=== PATIENT | male | born 1960 ===

== ENCOUNTER 2019-12-22 11:57 | Emergency (ER) | payer BC, OTHER ==
[2019-12-22] MEDS ORDERED: Sodium Chloride 0.9% 10 ML Syringe FLUSH PRN (12:00)
[2019-12-22] MEDS ORDERED: Sodium Chloride 0.9% 2.5 ML Syringe FLUSH PRN (12:00)
[2019-12-22] MEDS ORDERED: Aspirin 81 MG Tab.Chew PO ONE (12:01)
[2019-12-22] MEDS ORDERED: Enoxaparin 150 MG/1 ML Syringe SUBCUT ONE (12:19)
[2019-12-22] MEDS ORDERED: Nitroglycerin 2% Oint 1 GM UD Packet TOP ONE (12:19)
[2019-12-22] MEDS ORDERED: Clopidogrel 75 MG Tab PO ONE (12:24)
[2019-12-22 12:36] LABS: BLOOD UREA NITROGEN,BUN 14 mg/dL (7.0-18.0); CARBON DIOXIDE,CO2 24.1 mmol/L (21.0-32.0); CHLORIDE,CL 106 mmol/L (98-107); GLUCOSE RANDOM 110 mg/dL (74-106); POTASSIUM,K 4.2 mmol/L (3.5-5.1); SODIUM,NA 141 mmol/L (136-148)
--- NOTE | 2019-12-22 12:43 | CR ---
Chest: AP view of the chest was obtained. Comparison: Prior chest x-ray of 02/02/10. Heart size and mediastinum are normal. Lungs are clear. Bony structures are grossly intact. Impression: 1. Nothing acute is appreciated on AP chest x-ray. Diagnostic code #1 This report was dictated in [place] Standard Time
--- NOTE | 2019-12-22 12:53 | EDM.PDOC ---
ED HPI GENERAL MEDICAL PROBLEM - General Chief Complaint: Chest Pain Stated Complaint: CHEST PAIN Time Seen by Provider: 12/22/19 12:00 Source of Information: Reports: Patient History Limitations: Reports: No Limitations - History of Present Illness INITIAL COMMENTS - FREE TEXT/NARRATIVE: Patient is a 59-year-old male who is complaining of having chest discomfort which started approximately an hour prior to arrival initial episode lasting 5 minutes and reoccurred approximately 30 minutes prior to arrival worse continuing currently. Patient rates the pain is 5-6 out of 10 intensity without radiation. He feels a little short of breath a little nauseous though denies being diaphoretic. There does not appear to be exertional component with this. He denies ever having previously similar symptoms. He has no history of high blood pressure high cholesterol diabetes or family history of coronary artery disease. Patient is not a cigarette smoker denies using any street drugs. Denies any swelling to his calves or ankles and denies any bloody or tarry stools. Initially presented with a sensation of palpitations. Onset: Today Duration: Hour(s): (1), Constant Location: Reports: Chest Quality: Reports: Ache, Dull. Denies: Pressure Severity: Moderate Improves with: Reports: None Worsens with: Reports: None Associated Symptoms: Reports: Shortness of Breath. Denies: Diaphoresis Left Chest Pain Score (Numeric/FACES): 5 - Related Data Allergies Allergy/AdvReac Type Severity Reaction Status Date / Time No Known Allergies Allergy Verified 12/22/19 12:04 Home Meds: Home Meds . [No Known Home Meds] 12/22/19 [History] Past Medical History - Past Health History Medical/Surgical History: Denies Medical/Surgical History Social & Family History - Tobacco Use Smoking Status *Q: Never Smoker Second Hand Smoke Exposure: No - Caffeine Use Caffeine Use: Reports: Soda - Recreational Drug Use Recreational Drug Use: No ED ROS GENERAL - Review of Systems Review Of Systems: Comprehensive ROS is negative, except as noted in HPI. ED EXAM, GENERAL - Physical Exam Exam: Not Obtained Free Text/Narrative:: Exam: See Below Exam Limited By: No Limitations Head: Atraumatic Neck: Normal Inspection. No: Carotid Bruit, Lymphadenopathy (R) Respiratory/Chest: No Respiratory Distress, Lungs Clear, Normal Breath Sounds, No Accessory Muscle Use. No: Chest Non-Tender Cardiovascular: Normal Peripheral Pulses, Regular Rate, Rhythm, No Edema, No JVD GI/Abdominal: Normal Bowel Sounds, soft nontender nondistended. Back Exam: Normal Inspection. No: CVA Tenderness (R) Extremities: Normal Inspection. No: No Pedal Edema Neurological: Alert, Oriented, Normal Cognition Psychiatric: Normal Affect Skin Exam: Warm Lymphatic: No Adenopathy EKG INTERPRETATION Rhythm: NSR P-Wave: Present QRS: Normal ST-T: Depressed (ST depression with T wave inversion in lead V1 and V2 and also lateral leads. T wave inversion in lead V3.) Comparison: NA - No Prior EKG Course - Vital Signs Text/Narrative:: Patient's EKG was found to Dr. 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 Dr. Ceballos wanted patient started on Lovenox and Dr. Menon was recommending 600 mg dose of Plavix. I am giving patient half inch of Nitropaste for his ongoing chest pain. His pain is decreased to 2 out of 10 intensity. He is feeling much better. I have talked to Dr. Mendez at [facility] and patient is going by [facility] with fixed wing there. Last Recorded V/S: Last Vital Signs Temp 35.6 C L 12/22/19 12:05 Pulse 67 12/22/19 12:05 Resp 17 12/22/19 12:05 BP 114/71 12/22/19 12:05 Pulse Ox 97 12/22/19 12:05 - Orders/Labs/Meds Orders: Active Orders 24 hr Category Date Time Status EKG Documentation Completion [RC] STAT Care 12/22/19 12:00 Active Sodium Chloride 0.9% [Saline Flush] Med 12/22/19 12:00 Active 10 ml FLUSH ASDIRECTED PRN Sodium Chloride 0.9% [Saline Flush] Med 12/22/19 12:00 Active 2.5 ml FLUSH ASDIRECTED PRN Saline Lock Insert [OM.PC] Stat Oth 12/22/19 12:00 Ordered Medication Orders Sodium Chloride (Saline Flush) 10 ml FLUSH ASDIRECTED PRN PRN Reason: Keep Vein Open Last Admin: 12/22/19 12:08 Dose: 10 ml Sodium Chloride (Saline Flush) 2.5 ml FLUSH ASDIRECTED PRN PRN Reason: Keep Vein Open Last Admin: 12/22/19 12:08 Dose: 2.5 ml Labs: Laboratory Tests 12/22/19 12/22/19 Range/Units 12:00 12:00 WBC 9.29 (4.0-11.0) K/uL RBC 5.31 (4.50-5.90) M/uL Hgb 16.0 (13.0-17.0) g/dL Hct 45.9 (38.0-50.0) % MCV 86.4 (80.0-98.0) fL MCH 30.1 (27.0-32.0) pg MCHC 34.9 (31.0-37.0) g/dL RDW Std Deviation 42.7 (28.0-62.0) fl RDW Coeff of Deyvi 14 (11.0-15.0) % Plt Count 246 (150-400) K/uL MPV 10.70 (7.40-12.00) fL Neut % (Auto) 47.3 L (48.0-80.0) % Lymph % (Auto) 40.8 H (16.0-40.0) % [place] % (Auto) 9.6 (0.0-15.0) % Eos % (Auto) 1.9 (0.0-7.0) % Baso % (Auto) 0.4 (0.0-1.5) % Neut # (Auto) 4.4 (1.4-5.7) K/uL Lymph # (Auto) 3.8 H (0.6-2.4) K/uL [place] # (Auto) 0.9 H (0.0-0.8) K/uL Eos # (Auto) 0.2 (0.0-0.7) K/uL Baso # (Auto) 0.0 (0.0-0.1) K/uL Nucleated RBC % 0.0 /100WBC Nucleated RBCs # 0 K/uL Sodium 141 (136-148) mmol/L Potassium 4.2 (3.5-5.1) mmol/L Chloride 106 (98-107) mmol/L Carbon Dioxide 24.1 (21.0-32.0) mmol/L BUN 14 (7.0-18.0) mg/dL Creatinine 1.0 (0.8-1.3) mg/dL Est Cr Clr Drug Dosing 91.33 mL/min Estimated GFR (MDRD) > 60.0 ml/min Glucose 110 H (74-106) mg/dL Calcium 8.8 (8.5-10.1) mg/dL Total Bilirubin 0.6 (0.2-1.0) mg/dL AST 26 (15-37) IU/L ALT 49 (14-63) IU/L Alkaline Phosphatase 67 (46-116) U/L Troponin I < 0.050 (0.000-0.056) ng/mL Total Protein 7.7 (6.4-8.2) g/dL Albumin 4.0 (3.4-5.0) g/dL Globulin 3.7 (2.6-4.0) g/dL Albumin/Globulin Ratio 1.1 (0.9-1.6) Meds: Medications Generic Name Dose Route Start Last Admin Trade Name Freq PRN Reason Stop Dose Admin Sodium Chloride 10 ml 12/22/19 12:00 12/22/19 12:08 Saline Flush FLUSH 10 ml ASDIRECTED PRN Administration Keep Vein Open Sodium Chloride 2.5 ml 12/22/19 12:00 12/22/19 12:08 Saline Flush FLUSH 2.5 ml ASDIRECTED PRN Administration Keep Vein Open Discontinued Medications Generic Name Dose Route Start Last Admin Trade Name Freq PRN Reason Stop Dose Admin Aspirin 324 mg 12/22/19 12:01 12/22/19 12:08 Aspirin PO 12/22/19 12:02 324 mg ONETIME ONE Administration Clopidogrel Bisulfate 600 mg 12/22/19 12:24 12/22/19 12:39 Plavix PO 12/22/19 12:25 600 mg ONETIME ONE Administration Enoxaparin Sodium 150 mg 12/22/19 12:19 12/22/19 12:43 Lovenox SUBCUT 12/22/19 12:20 150 mg ONETIME ONE Administration Nitroglycerin 1 gm 12/22/19 12:19 12/22/19 12:43 Nitro-Bid 2% TOP 12/22/19 12:20 1 gm ONETIME ONE Administration Departure - Departure Time of Disposition: 12:59 Disposition: DC/Tfer to Acute Hospital 02 Reason for Transfer *Q: Other (Need for Manager Ship and/or stress testing.) Condition: Fair Clinical Impression: Acute coronary syndrome Referrals: PCP,Not In Area [Primary Care Provider] - Forms: ED Department Discharge Sepsis Event Note - Evaluation Sepsis Screening Result: No Definite Risk - Focused Exam Vital Signs: Vital Signs Temp Pulse Resp BP Pulse Ox 12/22/19 12:05 35.6 C L 67 17 114/71 97 12/22/19 12:00 72 18 114/71 95 Date Exam was Performed: 12/22/19 Time Exam was Performed: 12:53
== END 2019-12-22 13:10 ==
LOC: MW.ED 11:57
DX: I24.9 Acute ischemic heart disease, unspecified (principal)
CPT/HCPCS: 71045; 80053; 84484; 85025; 93005; 96372; 99285; A9270; J1650